=== PATIENT | female | born 1975 | race Caucasian/White ===

== ENCOUNTER → 2016-08-26 | Outpatient (CLI) | payer OTHER ==
[2014-03-31 01:24] VITALS: BP 119/58
[~2016-08-26] MED LIST: ALBU8.5H6 IH; DEXL60CA PO; IBUP200C PO; OMEP20TA63 PO
--- NOTE | 2016-08-26 11:38 | KCIC ---
Bilateral digital screening mammograms with CAD: HISTORY Routine screening. COMPARISON Comparison is made to previous studies dated 12/12/2013. FINDINGS Breast density category B. The skin and nipples show no abnormalities. No abnormal lymph nodes are seen in the axilla. The breast parenchyma shows scattered fibroglandular density. There is some parenchymal asymmetry at the 1 o'clock B position of the left breast which appears to be slightly more prominent than on previous examination. Recommend further evaluation with coned compression views and ultrasound. There are no other dominant masses, suspicious calcifications or architectural distortions. IMPRESSION Parenchymal asymmetry at the 1 o'clock B position of the left breast. Recommend further evaluation with coned compression views and ultrasound. This study was interpreted with the benefit of Computerized Aided Detection (CAD). Mammography is not 100% sensitive in detecting breast cancer. Therefore, a self breast exam and a clinical breast exam are very important. A negative mammogram does not negate a clinically suspicious finding and should not result in a delay in biopsying a clinically suspicious abnormality. BI-RADS category 0: Incomplete. Additional imaging is recommended. This patient's information has been entered into a reminder system for the patient to be notified with the results of this examination and a target date for her next mammograms. Electronically signed by: Yissel Avendaño MD (Aug 26, 2016 11:35:59)
--- NOTE | 2016-08-26 11:45 | KCIC ---
PROCEDURE Pelvic ultrasound HISTORY Enlarged uterus. COMPARISON None FINDINGS Transabdominal scan Limited visualization of the uterus and adnexa. Endovaginal scan Uterus measures 10.1 cm longitudinal by 5.8 cm AP by 6.5 cm wide. There is a focal lesion within the anterior fundus measuring 2.3 cm diameter and another lesion at the posterior fundus measuring 2.8 cm diameter, would most typically represent uterine fibroids. Endometrial stripe measures 4 millimeters thickness. Mild free pelvic fluid. Nabothian cyst identified in the cervical region measuring 11 millimeter. Right ovary measures 4.0 cm diameter with small follicular cysts and positive blood flow. Left ovary measures 3.0 cm long axis with positive blood flow. IMPRESSION 1. Uterus contains 2 lesions which most likely represent uterine fibroids. 2. Mild free pelvic fluid. Electronically signed by: Rodrigo Arita MD (Aug 26, 2016 11:44:10)
== END | disposition home or self-care (01) ==
LOC: KCIC US 09:57
PROVIDERS: ATTEND Family Medicine
DX: Z12.31 Encounter for screening mammogram for malignant neoplasm of breast (principal); N85.2 Hypertrophy of uterus
CPT/HCPCS: 76830; 76856; G0202; 77067

== ENCOUNTER → 2016-09-06 | Outpatient (CLI) | payer OTHER ==
[2014-03-31 01:24] VITALS: BP 119/58
--- NOTE | 2016-09-06 10:35 | KCIC ---
PROCEDURE Left breast digital add views with CAD HISTORY Asymmetric tissue density in the August 26, 2016 mammogram TECHNIQUE Spot MLO and spot CC views of the left breast were obtained COMPARISON November 12, 2013 FINDINGS The asymmetric tissue density appears less prominent on the spot views however, there is overall all increased density in the left breast compared to the old study. Ultrasound shows no focal abnormality. IMPRESSION Asymmetric tissue density is felt to be superimposition of normal fibroglandular tissue. Recommend a left mammogram in 6 months to assess stability. These results were given to the patient in person. BI-RADS 3: Probably benign. Six-month follow-up. Electronically signed by: Jamaal Rosales MD (Sep 06, 2016 10:33:28)
--- NOTE | 2016-09-06 10:36 | KCIC ---
PROCEDURE Left breast diagnostic ultrasound HISTORY Asymmetric tissue densities on mammogram. TECHNIQUE Sonographic examination left breast was performed and multiple static images were obtained. FINDINGS There is no focal abnormality. IMPRESSION Negative examination. Asymmetric tissue densities on mammogram are felt to be superimposition of normal fibroglandular tissue. Recommend the patient have a 6 month followup left mammogram to assess stability. These results were given to the patient in person. ACR BI-RADS 3: Probably benign. Electronically signed by: Jamaal Rosales MD (Sep 06, 2016 10:35:00)
== END | disposition home or self-care (01) ==
LOC: KCIC MAMMO 09:34
PROVIDERS: ATTEND Family Medicine
DX: N64.89 Other specified disorders of breast (principal)
CPT/HCPCS: 76641; G0206; 77065

== ENCOUNTER → 2017-02-24 | Outpatient (CLI) | payer OTHER ==
[2014-03-31 01:24] VITALS: BP 119/58
[~2017-02-24] MED LIST changes: -DEXL60CA PO; +DEXL60CA2 PO
--- NOTE | 2017-02-24 14:49 | KCIC ---
DATE: 02/24/2017 EXAM: DIGITAL DIAGNOSTIC LT HISTORY: Follow-up asymmetry COMPARISON: 08/26/2016, 09/06/2016 The breast parenchyma shows scattered fibroglandular densities. Breast parenchyma level B. FINDINGS: 2-D and 3-D tomosynthesis images of the left breast were obtained in CC and MLO projections. The fibroglandular densities in the left breast are unchanged. No new or enlarging densities are seen. The tomosynthesis images do not demonstrate a discrete mass. No suspicious microcalcifications are evident. IMPRESSION: Stable left mammograms. Follow-up bilateral mammography in 6 months is suggested. BI-RADS CATEGORY: 3 PROBABLY BENIGN FINDING(S)-SHORT INTERVAL FOLLOW-UP SUGGESTED RECOMMENDED FOLLOW-UP: 6M 6 MONTH FOLLOW-UP PQRS compliance statement: Patient information was entered into a reminder system with a target due date for the next mammogram. Mammography is a sensitive method for finding small breast cancers, but it does not detect them all and is not a substitute for careful clinical examination. A negative mammogram does not negate a clinically suspicious finding and should not result in delay in biopsying a clinically suspicious abnormality. "Our facility is accredited by the [employer] Mammography Program."
== END | disposition home or self-care (01) ==
LOC: KCIC MAMMO 13:47
PROVIDERS: ATTEND Family Medicine
DX: R92.8 Other abnormal and inconclusive findings on diagnostic imaging of breast (principal)
CPT/HCPCS: G0206; G0279; 77061; 77065

== ENCOUNTER → 2017-08-29 | Outpatient (CLI) | payer OTHER | END | disposition home or self-care (01) | LOC: KCIC MAMMO 09:42 | DX: R92.8 Other abnormal and inconclusive findings on diagnostic imaging of breast (principal) | CPT/HCPCS: 77066; G0279 ==

== ENCOUNTER → 2018-04-18 | Outpatient (CLI) | payer OTHER ==
[2014-03-31 01:24] VITALS: BP 119/58
--- NOTE | 2018-04-18 10:50 | KCIC ---
AP and Lateral Views of the Chest 04/18/2018 12:00 AM Indication: Dyspnea on exertion. Palpitations. 20 year smoking history. Comparison: CT chest March 31, 2014. Findings: Nodular opacity seen in the left lung base on AP view. Correlate opacity may be seen in the lingula on lateral view. No pneumothorax or pleural effusion is seen. Heart size is normal. Bony thorax is grossly intact. IMPRESSION: Nodular opacity in the left lung base. This could be a true pulmonary nodule or a mild focal infectious or inflammatory process. Consider CT for further evaluation Electronically signed by: Fco Eubansk MD (04/18/2018 10:47 AM) [id number]
== END | disposition home or self-care (01) ==
LOC: KCIC 09:07
PROVIDERS: ATTEND Nurse Practitioner Family
DX: R06.09 Other forms of dyspnea (principal); R00.2 Palpitations; Z87.891 Personal history of nicotine dependence
CPT/HCPCS: 71046

== ENCOUNTER → 2018-04-26 | Outpatient (CLI) | payer OTHER ==
[2014-03-31 01:24] VITALS: BP 119/58
--- NOTE | 2018-04-26 10:03 | KCIC ---
CT chest without contrast 04/26/2018 CLINICAL INDICATION: Pulmonary nodule, tobacco use. COMPARISON: Chest radiograph 04/18/2018, CTA chest 03/31/2014. TECHNIQUE: Multiple CT images of the chest were obtained without contrast. *One or more of the following individualized dose reduction techniques were utilized for this examination: 1. Automated exposure control. 2. Adjustment of the mA and/or kV according to patient size. 3. Use of iterative reconstruction technique. FINDINGS: There is a 1.9 cm hypodense nodule in the left lobe of the thyroid gland. Heart size is normal without significant pericardial effusion. The thoracic aorta is normal in caliber. There are few mildly prominent mediastinal lymph nodes stable from 2013 and considered reactive. No axillary, mediastinal or obvious hilar lymphadenopathy, though evaluation is limited in the absence of intravenous contrast. There are scattered mediastinal and left hilar calcified granulomas. The central airways are patent. There are two stable calcified granulomas in the posterior left lower lobe. No suspicious noncalcified pulmonary nodule. There are stable sclerotic lesions the thoracic spine and likely benign enostosis. Limited images of the upper abdomen: Grossly unremarkable. IMPRESSION: 1. Two left lower lobe calcified granulomas, one of which, likely corresponds to the nodular opacity seen on recent chest radiograph. No suspicious noncalcified pulmonary nodules. 2. Left thyroid hypodense nodule. Dedicated thyroid ultrasound is recommended, if not already performed. Electronically signed by: Bennie Harley MD (04/26/2018 10:00 AM) [id number]
== END | disposition home or self-care (01) ==
LOC: KCIC CT 08:18
PROVIDERS: ATTEND Nurse Practitioner Family
DX: J84.10 Pulmonary fibrosis, unspecified (principal); Z72.0 Tobacco use
CPT/HCPCS: 71250

== ENCOUNTER → 2018-05-01 | Outpatient (CLI) | payer OTHER ==
[2014-03-31 01:24] VITALS: BP 119/58
--- NOTE | 2018-05-01 16:31 | KCIC ---
Thyroid ultrasound HISTORY: Left thyroid nodule. Right thyroid: * 5.5 cm x 1.9 cm x 1.6 cm * Numerous tiny nodules are identified, measuring 2 mm or less. * No dominant mass is seen. Isthmus: * 4 mm thickness. * 4 mm nodule, solid, within the isthmus. There is vascularity at the margin of this nodule. Left thyroid: * 6.1 cm x 2.8 cm x 2.2 cm. * Solid mass at the lower pole of left thyroid measures 2.7 cm long axis. This demonstrates internal vascularity. IMPRESSION: 1. Dominant mass at the lower pole of the left thyroid, 2.7 cm. Nonspecific, but the size and internal vascularity raises the question of malignant etiology, therefore recommend continued workup or follow-up. 2. Small 4 mm nodule at the isthmus. 3. Multiple tiny 2 mm or less nodules in the right thyroid. Electronically signed by: Rodrigo Arita MD (05/01/2018 4:27 PM) [id number]
== END | disposition home or self-care (01) ==
LOC: KCIC US 15:22
PROVIDERS: ATTEND Family Medicine
DX: E04.2 Nontoxic multinodular goiter (principal)
CPT/HCPCS: 76536

== ENCOUNTER → 2018-09-05 | Outpatient (CLI) | payer OTHER ==
[2014-03-31 01:24] VITALS: BP 119/58
--- NOTE | 2018-09-05 15:09 | KCIC ---
BILATERAL SCREENING MAMMOGRAM, 3-D History: Routine screening. Comparison: Bilateral mammogram August 29, 2017 and dating back to 2013. Technique: MLO and CC digital tomosynthesis (3D) images obtained. Radiologist reviewed these images on dedicated workstation. Findings: Breast Tissue Density B : There are scattered areas of fibroglandular density. Tiny mass in the lower inner left breast at anterior depth may be an intramammary lymph node and is stable. There are no dominant masses, suspicious microcalcifications, or architectural distortion. IMPRESSION: No mammographic evidence of malignancy. Recommend routine screening. BI-RADS category 2: Benign findings. The images were reviewed with computer-aided detection. Patient information is entered into reminder system with a target due date for the next screening mammogram. Mammography is the most sensitive method for finding small breast cancers, but it does not detect them all and is not a substitute for careful clinical examination. A negative mammogram does not negate a clinically suspicious finding and should not result in delay in biopsying a clinically suspicious abnormality. "Our facility is accredited by the [employer] Mammography Program." Electronically signed by: Ricardo Dick MD (09/05/2018 3:06 PM) [id number]
== END | disposition home or self-care (01) ==
LOC: KCIC MAMMO 11:28
PROVIDERS: ATTEND Family Medicine
DX: Z12.31 Encounter for screening mammogram for malignant neoplasm of breast (principal); N63.24 Unspecified lump in the left breast, lower inner quadrant
CPT/HCPCS: 77063; 77067

== ENCOUNTER → 2020-07-09 | Outpatient (CLI) | payer MEDICAID ==
[2014-03-31 01:24] VITALS: BP 119/58
--- NOTE | 2020-07-09 17:24 | KCIC ---
Bilateral digital screening mammograms with 3-D tomosynthesis: Reason for examination: Routine screening. Comparison is made to previous studies dated back to 02/24/2017. Bilateral mammograms in CC and oblique projections were obtained with 2-D imaging and 3-D tomosynthes is imaging on a Siemens Inspiration unit and reviewed on the workstation. Interpretation was made wit h the benefit of CAD. The skin and nipples show no abnormalities. No abnormal axillary lymph nodes are seen. The breast par enchyma shows scattered fatty and fibroglandular density. (Breast density: Category B.) There are no dominant masses, suspicious calcifications or architectural distortion. Impression: No evidence of malignancy. Recommend routine screening. BI-RAD Category 1: Negative. "Our facility is accredited by the [employer] Mammography [employer]." This patient's information has been entered into a reminder system for the patient to be notified wit h the results of her examination and a target date for the next mammogram. Electronically signed by: Sandra Avendaño MD (07/09/2020 5:21 PM) [id number]
== END ==
LOC: KCIC MAMMO 09:46
PROVIDERS: ATTEND Nurse Practitioner Family
DX: Z12.31 Encounter for screening mammogram for malignant neoplasm of breast (principal)
CPT/HCPCS: 77063; 77067

== ENCOUNTER → 2021-09-03 | Outpatient (CLI) | payer MEDICAID ==
[2014-03-31 01:24] VITALS: BP 119/58
--- NOTE | 2021-09-03 16:35 | KCIC ---
EXAM: XR FOOT_LEFT 3 VIEWS 09/03/2021 3:50 PM CLINICAL INDICATION: Left foot pain, chronic left foot pain in forefoot. Especially pad of the COMPARISON: None TECHNIQUE: 3 views of the left foot FINDINGS: No acute fracture. Alignment is normal. Joint spaces are maintained. There are small calca samy enthesophytes. No soft tissue abnormality. IMPRESSION: No acute osseous abnormality. Electronically signed by: Zeina Ferro MD (09/03/2021 4:33 PM) [id number]
== END ==
LOC: KCIC 15:29
PROVIDERS: ATTEND Nurse Practitioner Family
DX: M79.672 Pain in left foot (principal)
CPT/HCPCS: 73630

== ENCOUNTER → 2021-10-20 | Outpatient (CLI) | payer MEDICAID ==
[2014-03-31 01:24] VITALS: BP 119/58
--- NOTE | 2021-10-20 16:58 | KCIC ---
Single view pelvis and two-view left hip dated 10/20/2021. COMPARISON: None. INDICATION: Pain. FINDINGS: AP view pelvis and two-view of left hip show normal bony alignment. No displaced fracture. Mild hyper trophic change of the pubic symphysis and bilateral SI joint. No periostitis or bone destruction. IMPRESSION: No acute findings. Electronically signed by: Rodrigo Mcintosh MD (10/20/2021 4:56 PM) [id number]
== END ==
LOC: KCIC 15:16
PROVIDERS: ATTEND Nurse Practitioner Family
DX: M25.552 Pain in left hip (principal)
CPT/HCPCS: 73502